=== PATIENT | female | born 1990 | race Caucasian/White ===

== ENCOUNTER 2017-03-16 23:37 | Outpatient (CLI) | payer OTHER ==
[~2017-03-16] VITALS: Ht 165.1 cm; Wt 67.1 kg
[~2017-03-16 23:37] MED LIST: NOHOMEMEDS
[2017-03-16 23:49] VITALS: BP 118/73
[2017-03-17 01:39] VITALS: BP 115/63
[2017-03-17] MEDS ORDERED: ZOLOFT50 MG PO (03:37)
[2017-03-17] MEDS ORDERED: PRENATAL TABLE1 EAC3 PO (03:38)
[2017-03-17] MEDS ORDERED: VALTREX50 MG/ML PO (03:38)
== END 2017-03-17 04:00 | disposition home or self-care (01) ==
LOC: LDRP-OP 23:37 → 2WEST 23:38 → LDRP-OP 04-22 16:53
DX: O46.93 Antepartum hemorrhage, unspecified, third trimester (principal); O47.1 False labor at or after 37 completed weeks of gestation; Z3A.39 39 weeks gestation of pregnancy; O99.343 Other mental disorders complicating pregnancy, third trimester; F41.9 Anxiety disorder, unspecified
CPT/HCPCS: 59025; G0378

== ENCOUNTER 2017-03-19 03:06 | Inpatient (IN) | payer OTHER ==
[2017-03-19] VITALS (16 sets, daily range): BP systolic 98–119; BP diastolic 55–74
[~2017-03-19] VITALS: Ht 165.1 cm; Wt 71.8 kg
[~2017-03-19 03:06] MED LIST changes: +PRENATAL TABLE1 EAC3 PO; +VALTREX50 MG/ML PO; +ZOLOFT50 MG PO
[2017-03-19 03:52] LABS: EOSINOPHIL (%) 0.2 % (0-5); HEMATOCRIT 28.9 % (36.0-46.0); IMMATURE GRANULOCYTE (%) 0.4 % (0.0-0.7); IMMATURE GRANULOCYTE COUNT 0.1 K/uL; INSTRUMENT ABS NEUTROPHIL CT 10.3 K/uL; LYMPHOCYTE COUNT 1.8 K/uL (1.0-2.8); MCH 26.7 PG (29.0-34.0); MCHC 32.5 G/DL (30.0-36.0); MCV 82.1 FL (83-99); MEAN PLAT.VOLUME 10.4 uM^3 (9.5-12.4); MONOCYTE (%) 5.6 % (3-12); MONOCYTE COUNT 0.7 K/uL (0-0.8); NEUTROPHIL (%) 79.7 % (45-76); NEUTROPHIL COUNT 10.3 K/uL (1.8-6.4); PLATELET COUNT 234 K/uL (156-360); RBC DIS.WIDTH-CV 13.1 % (11.8-14.6); RBC DIS.WIDTH-SD 39.1 % (39-53); RED BLOOD COUNT 3.52 M/uL (3.80-5.20)
[2017-03-19] MEDS ORDERED: IBUPROFEN800 MG PO (07:26)
[2017-03-20 07:30] VITALS: BP 131/81
== END 2017-03-20 15:25 | disposition home or self-care (01) | DRG 775 ==
LOC: LDRP-OP 03:06 → 2WEST 03:07 → LDRP-OP 04-22 04:06
PROVIDERS: Advanced Practice Midwife
DX: O99.344 Other mental disorders complicating childbirth (principal); F41.9 Anxiety disorder, unspecified; Z37.0 Single live birth; Z3A.39 39 weeks gestation of pregnancy; F32.9 Major depressive disorder, single episode, unspecified
CPT/HCPCS: 85025; C1755; J1050; J3010; J7120